=== PATIENT | female | born 1980 | race Caucasian/White ===

== ENCOUNTER 2020-08-09 08:51 | Emergency (ER) | payer MEDICAID ==
[~2020-08-09] VITALS: Ht 167.6 cm; Wt 77.1 kg
[2020-08-09 08:59] VITALS: BP 152/85
== END 2020-08-09 09:47 | disposition home or self-care (01) ==
LOC: ER 08:51
DX: S62.636A Displaced fracture of distal phalanx of right little finger, initial encounter for closed fracture (principal); Z87.891 Personal history of nicotine dependence; W50.0XXA Accidental hit or strike by another person, initial encounter; Y93.89 Activity, other specified; Y92.89 Other specified places as the place of occurrence of the external cause; Y99.8 Other external cause status
CPT/HCPCS: 29130; 73140

== ENCOUNTER 2021-03-20 07:55 | Emergency (ER) | payer MEDICAID ==
[~2021-03-20] VITALS: Ht 167.6 cm; Wt 80.7 kg
[2021-03-20 08:23] VITALS: BP 151/85
[2021-03-20] MEDS ORDERED: MELO7.5T9 PO (08:56)
== END 2021-03-20 09:05 | disposition home or self-care (01) ==
LOC: ER 07:55
DX: M13.852 Other specified arthritis, left hip (principal); M13.851 Other specified arthritis, right hip; F12.10 Cannabis abuse, uncomplicated; Z87.891 Personal history of nicotine dependence
CPT/HCPCS: 73502